=== PATIENT | female | born 1965 | race Caucasian/White ===

== ENCOUNTER 2024-04-28 01:12 | Emergency (ER) | payer SELFPAY ==
[2024-04-28 01:21] VITALS: BP 114/66
[2024-04-28 01:54] VITALS: BP 145/88
[2024-04-28 02:08] LABS: % Basophils 1.4 % (0-2); % Eosinophils 3.1 % (0-6); % Immature Granulocytes 0.2 % (0-0.5); % Lymphocytes 41.6 % (20.5-51.1); % Monocytes 12.2 % (1.7-9.3); % Neutrophils 41.5 % (42.2-75.2); Absolute Basophils 0.1 10^3/uL (0-0.2); Absolute Eosinophils 0.2 10^3/uL (0-0.7); Absolute Lymphocytes 2.4 10^3/uL (1.2-3.4); Absolute Monocytes 0.7 10^3/uL (0.1-0.6); Absolute Neutrophils 2.4 10^3/uL (1.4-6.5); Hematocrit 34.2 % (37.0-47.0); Mean Corp Hgb Conc. 35.1 g/dL (33.0-37.0); Mean Corpuscular Hgb 29.3 pg (27.0-31.0); Mean Corpuscular Volume 83.4 fL (81.0-99.0); Nucleated Red Blood Cells % 0 %; Platelet Count 333 10^3/uL (130-400); Red Cell Dist. Width 15.4 % (11.5-14.5); White Blood Cell Count 5.8 10^3/uL (4.8-10.8)
[2024-04-28 02:34] LABS: Troponin I 0.017 ng/ml
[2024-04-28 02:40] LABS: ALT (SGPT) 27 U/L (0-35); AST (SGOT) 31 U/L (14-36); Albumin 4.2 g/dl (3.5-5.0); Alkaline Phosphatase 73 U/L (38-126); Blood Urea Nitrogen 18 mg/dl (7-17); Calcium 9.4 mg/dl (8.4-10.2); Carbon Dioxide 25 mmol/L (22-30); Chloride 102 mmol/L (98-107); Glucose 122 mg/dl (70-99); Potassium 3.6 mmol/L (3.5-5.1); Sodium 138 mmol/L (135-145); Total Bilirubin 0.5 mg/dl (0.2-1.3); Total Protein 6.6 g/dl (6.3-8.2); eGFR > 60.00
[2024-04-28 03:00] VITALS: BP 130/77
--- NOTE | 2024-04-28 03:59 | ED.GENMED ---
History of Present Illness
<ALEXEI Nieto (Lenka) - Last Filed: 04/28/24 04:51>
General
Chief Complaint: Cardiac Symptoms
Source: patient
Exam Limitations: none
Time Seen by Provider: 04/28/24 03:39
Nursing documentation reviewed up to this point in time: agreed with
History of Present Illness
History of Present Illness:
Pt is a 58 yo female with PMHx of LBBB (last ECHO '), HTN, anxiety/depression who presents to the ED with concerns over cardiac symptoms around 2300 tonight. 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
anxiety, and then feeling weakness, heaviness, and numbness in her left upper extremity. She endorses brain fog and 'feeling her body fall in slow motion', but was able to catch herself. Denies falls or LOC. She became nauseous, diaphoretic, shaky,
felt heaviness in her chest. She states she has had a lot of stress at home recently and has been eating based on a 'weight watchers' diet. She has felt exhausted and tired from lack of sleep for the past week. Denies PALACIOS, vision changes, dyspnea,
chest pain, abdominal pain, changes to bowel or bladder habits, numbness or tingling in her feet, calf pain. She denies recent travel, no known sick contacts. Pt has had panic attacks in the past, but none with symptoms this severe, hence why she
called EMS to take her to the ED. She reports she was hyperventilating in the ambulance and felt better once relaxed.
Of note - recent increase in venlafaxine 01/2024 due to increased anxiety/depression.
Pt asymptomatic on exam.
Past History
<ALEXEI Nieto (Lenka) - Last Filed: 04/28/24 04:51>
Past History
ED Past Medical History: Arrthythmia (LBBB) and HTN
ED Past Surgical History: Cholecystectomy and Other (Gastric bypass, Hernia x 2)
Social History
Tobacco: Former smoker
Alcohol: Occasional
Drug: None
Personal:
Living: with family
Family History
Family History: Diabetes
Phy Exam
<ST Nieto (Lenka)FL - Last Filed: 04/28/24 04:51>
General Physical Exam
General Presentation: well appearing and no apparent distress
General age: appears stated age
General Skin: warm and dry
General Habitus: normal
General Mental: alert
General Hydration: appears well hydrated
Cardiovascular Exam
Cardiovascular Exam: regular rate/rhythm and normal peripheral pulses
Pulmonary Exam
Pulmonary Exam: lungs clear, no respiratory distress, no rales, no rhonchi, no wheezing and no cough
Gastrointestinal Exam
Gastrointestinal Exam: non tender, soft and non distended
Neurological Exam
Neurological Exam: alert, oriented x3 and speech normal
Musculoskeletal Exam
Musculoskeletal Exam: full ROM
Psychiatric Exam
Psychiatric Exam: normal mood/affect
Course
<Gini Perkins (Lenka) [facility] Filed: 04/28/24 04:51>
Orders/Labs/Results
Orders:
Orders
04/28/24 01:21
ECG [Electrocardiogram (*1)] Urgent
Reason for Study: Vertigo / Dizzy
EKG- Treatment ONCE
04/28/24 02:00
Complete Blood Count/With Diff Urgent
Troponin I Urgent
04/28/24 02:19
Comprehensive Metabolic Panel Urgent
04/28/24 04:06
Troponin I Urgent
Abnormal Lab Results
04/28/24 04/28/24
02:00 02:19
RBC 4.10 L 10^6/uL
(4.20-5.40)
Hct 34.2 L %
(37.0-47.0)
RDW 15.4 H %
(11.5-14.5)
Absolute Monos (auto) 0.7 H 10^3/uL
(0.1-0.6)
Neutrophils % 41.5 L %
(42.2-75.2)
Monocytes % 12.2 H %
(1.7-9.3)
BUN 18 H mg/dl
(7-17)
Creatinine 0.5 L mg/dL
(0.6-1.0)
Glucose 122 H mg/dl
(70-99)
04/28/24 02:00
04/28/24 02:19
Vital Signs
Initial and Last Documented VS:
Initial Vital Signs
Temp Pulse Resp BP Pulse Ox
98.7 F 88 26 114/66 100
04/28/24 01:21 04/28/24 01:21 04/28/24 01:21 04/28/24 01:21 04/28/24 01:21
Last Documented Vital Signs
Temp Pulse Resp BP Pulse Ox
98.7 F 80 13 130/77 99
04/28/24 01:21 04/28/24 03:45 04/28/24 03:45 04/28/24 03:00 04/28/24 04:51
<Brett Gibbons, DO - Last Filed: 04/28/24 04:55>
Orders/Labs/Results
Orders:
Orders
04/28/24 01:21
ECG [Electrocardiogram (*1)] Urgent
Reason for Study: Vertigo / Dizzy
EKG- Treatment ONCE
04/28/24 02:00
Complete Blood Count/With Diff Urgent
Troponin I Urgent
04/28/24 02:19
Comprehensive Metabolic Panel Urgent
04/28/24 04:06
Troponin I Urgent
Abnormal Lab Results
04/28/24 04/28/24
02:00 02:19
RBC 4.10 L 10^6/uL
(4.20-5.40)
Hct 34.2 L %
(37.0-47.0)
RDW 15.4 H %
(11.5-14.5)
Absolute Monos (auto) 0.7 H 10^3/uL
(0.1-0.6)
Neutrophils % 41.5 L %
(42.2-75.2)
Monocytes % 12.2 H %
(1.7-9.3)
BUN 18 H mg/dl
(7-17)
Creatinine 0.5 L mg/dL
(0.6-1.0)
Glucose 122 H mg/dl
(70-99)
04/28/24 02:00
04/28/24 02:19
Vital Signs
Initial and Last Documented VS:
Initial Vital Signs
Temp Pulse Resp BP Pulse Ox
98.7 F 88 26 114/66 100
04/28/24 01:21 04/28/24 01:21 04/28/24 01:21 04/28/24 01:21 04/28/24 01:21
Last Documented Vital Signs
Temp Pulse Resp BP Pulse Ox
98.7 F 80 13 130/77 99
04/28/24 01:21 04/28/24 03:45 04/28/24 03:45 04/28/24 03:00 04/28/24 04:51
<ALEXEI Nieto (Lenka) - Last Filed: 04/28/24 04:51>
MDM/Problems Addressed
Differential Diagnosis Includes:
DDx: panic attack vs symptomatic LBBB vs ACS
Will obtain EKG, basic labs, trend troponin.
<ALEXEI Nieto (Lenka) - Last Filed: 04/28/24 04:51>
*Critical Care Note
Total Time (30-74mins, 75-104mins- exclusive of procedures): Not Applicable
<Gini Dee) ALEXEI Perkins - Last Filed: 04/28/24 04:51>
Update Note
Update Note:
Initial troponin 0.017
Repeat troponin < 0.012
ED Attending Note
<Gini Dee) ALEXEI Perkins - Last Filed: 04/28/24 04:51>
-
Portions of this chart may have been created with voice recognition software.� Occasional wrong word or��sound alike� substitutions may have occurred due to the inherent limitations of voice recognition software.
<Brett Gibbons DO - Last Filed: 04/28/24 04:55>
ED Attending Note
Patient seen and examined by attending physician: Yes
I performed the substantive portion of visit, reviewed & personally made and approve the management plan that is documented in note by myself or RODRICK.: Yes
ED Attending Note:
Pleasant 58-year-old female presents to the emergency department with palpitations and near syncope. 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 She states that she felt anxious with paresthesias down
both arms. She stated that she had weakness and heaviness at first in her left upper extremity and then in both. She felt that she became lightheaded and though she saw the world around her, she felt as if it was moving very slowly. Patient
states that she is under stress at home and has been following a weight watchers diet. She quit smoking 14 years ago but still uses nicotine gum to control cravings. Denies cardiac history. Patient was seen in conjunction with the PA student. I
have reviewed and agree with the history and treatment plan presented. On my independent physical exam, patient is awake, alert, and oriented x3, no acute distress. Heart is regular rate rhythm without murmurs rubs gallops. Lungs are clear to
auscultation bilaterally without wheezes rales or rhonchi. Abdomen is soft and nontender not distended. Good bowel sounds x 4 quadrants. Negative Tavarez sign. Negative McBurney's point tenderness.
Plan is to follow troponins. If the second troponin comes back negative plan is to discharge home.
Discharge Plan
Departure
Patient Disposition: Home (Routine Discharge)
Date of Disposition: 04/28/24
Time of Disposition: 04:52
Patient with high blood pressure during this ER visit?: Yes
Condition: Good
Discharge Problem:
Palpitations
Instructions: Palpitations ED, Chest pain, BLOOD PRESSURE
Prescriptions:
No Action
citalopram 20 MG tablet
20 mg PO DAILY
lisinopril-hydrochlorothiazide 1 EACH tablet
1 ea PO HS
cyclobenzaprine 10 MG tablet
10 mg PO HSPRN PRN (Reason: muscle spasm)
tramadol 50 MG tablet
50 mg PO Q6HPRN PRN (Reason: pain) Qty: 10 0RF
cephalexin 500 MG capsule
500 mg PO QID Qty: 28 0RF
Referrals:
Evy Paredes CRNP [Family Provider] -
Activity Restrictions/Additional Instructions:
It was a pleasure meeting you and taking part in your care. We hope for your continued healing and wellness.
Please read discharge instructions in their entirety. However, they are for general education and may not describe your exact diagnosis at discharge. Information on your ER visit and medical conditions were discussed with you along with appropriate
follow up information...
If indicated, please take your medications as instructed and indicated on discharge paperwork.
Please schedule a follow up appointment as directed. Call to schedule an appointment
Please return to the emergency department with ANY change in, persisting, or worsening of symptoms. If any of your symptoms do not improve, or persist, or become more severe within 6-12 hours, please return to the emergency department for further
care.
Please return to the emergency department if you develop a headache, neck pain/stiffness, fever greater than 100.4F, chest pain, shortness of breath, persistent nausea, vomiting, slurred speech, difficulty walking, numbness/tingling, weakness, signs
of infection or any other symptoms that are worrisome to you.
If you have any questions or concerns please do not hesitate to call the Hospital at or E-mail me directly at [email or web address]
Interventions
Interventions:
*Risk Screen - Suicide Last Done: 04/28/24 01:21
*General Assessment Last Done: 04/28/24 02:22
*Neglect/Abuse Screening Last Done: 04/28/24 01:21
ED- Fall Risk Assessment Last Done: 04/28/24 02:22
*ED COVID-19 Vaccine History Last Done: 04/28/24 02:22
ED- Pulmonary Assessment Last Done: 04/28/24 04:51
ED- Cardiac Assessment Last Done: 04/28/24 02:14
Discharge Date and Time
Print Language: TUNISIAN
[2024-04-28 04:14] VITALS: BP 137/72
[2024-04-28 04:42] LABS: Troponin I < 0.012 ng/ml
[2024-04-28 05:00] VITALS: BP 127/75
[2024-04-28 05:06] VITALS: BP 127/70
== END 2024-04-28 05:07 | disposition home or self-care (01) ==
LOC: EMR 01:12
PROVIDERS: EMERGENCY PHYSICIAN Student in an Organized Health Care Education/Training Program; FAMILY PHYSICIAN Nurse Practitioner Adult Health
DX: R00.2 Palpitations (principal); I10 Essential (primary) hypertension; F41.9 Anxiety disorder, unspecified; F32.A Depression, unspecified; Z87.891 Personal history of nicotine dependence
CPT/HCPCS: 99284; 80053; 84484; 85025; 93005

== ENCOUNTER → 2024-05-22 12:48 | Outpatient (REF) | payer BC, SELFPAY | LOC: WDC 12:48 | PROVIDERS: ATTENDING PHYSICIAN Obstetrics & Gynecology Gynecology; FAMILY PHYSICIAN Family Medicine | DX: Z12.31 Encounter for screening mammogram for malignant neoplasm of breast (principal) | CPT/HCPCS: 77063; 77067 ==

== ENCOUNTER → 2025-02-22 14:56 | Outpatient (REF) | payer BC, SELFPAY | LOC: HWRAD 14:56 | PROVIDERS: ATTENDING PHYSICIAN Nurse Practitioner Adult Health; FAMILY PHYSICIAN Family Medicine | DX: R05.1 Acute cough (principal) | CPT/HCPCS: 71046 ==